=== PATIENT | male | born 1955 | race American Indian/Alaskan Native ===

== ENCOUNTER 2019-04-13 11:53 | Emergency (ER) | payer MEDICAID ==
[2019-04-13 12:34] LABS: Basophils % (Auto) 0.9 % (0.0-1.8); Eosinophils # (Auto) 0.1 K/mm3 (0.0-0.4); Eosinophils % (Auto) 2.7 % (0.0-4.3); Hematocrit 32.8 % (35.5-45.6); Hemoglobin 11.1 gm/dl (11.8-15.2); Lymphocytes # (Auto) 1.1 K/mm3 (1.2-5.4); Lymphocytes % (Auto) 30.9 % (13.4-35.0); Mean Corpuscular HGB Conc 34 % (32-34); Mean Corpuscular Volume 83 fl (84-94); Monocytes # (Auto) 0.3 K/mm3 (0.0-0.8); Monocytes % (Auto) 7.7 % (0.0-7.3); Platelet Count 201 K/mm3 (140-440); Red Blood Count 3.95 M/mm3 (3.65-5.03); Red Cell Distribution Width 12.9 % (13.2-15.2)
[2019-04-13 12:50] LABS: INR 1.2 (0.87-1.13)
[2019-04-13 12:51] LABS: Partial Thromboplastin Time 34.3 Sec. (24.2-36.6); Thrombin Time 17.7 Sec. (15.1-19.6)
[2019-04-13 12:53] LABS: Alanine Aminotransferase 25 units/L (7-56); Albumin 3.4 g/dL (3.9-5); BUN/Creatinine Ratio 16; Blood Urea Nitrogen 13 mg/dL (9-20); Calcium 9.4 mg/dL (8.4-10.2); Hemolysis Index 6
[2019-04-13 12:54] LABS: Alanine Aminotransferase 25 units/L (7-56); Albumin 3.4 g/dL (3.9-5)
[2019-04-13 13:01] LABS: Bilirubin,Direct < 0.2 mg/dL (0-0.2)
--- NOTE | 2019-04-13 13:35 | Emergency Department Report ---
HPI - General Chief Complaint: Neuro Symptoms/Deficit Time Seen by Provider: 04/13/19 12:48 - HPI HPI: Room 19 The patient is a 64-year-old male presenting with chief complaint of altered mental status. The patient's girlfriend states that the patient has had altered mental status for the past 2 days. She states she felt the patient slumped over on his left side today. The patient does not remember this. The patient states he remembers eating breakfast this morning the girlfriend states the patient was slumped over on his left side and drooling. ED Past Medical Hx - Past Medical History Previous Medical History?: Yes Hx Hypertension: Yes Hx CVA: Yes (x 5) Additional medical history: hep c - Surgical History Past Surgical History?: Yes - Family History Family history: no significant - Social History Smoking Status: Current Every Day Smoker (less than 5 cigarettes daily) Substance Use Type: None ED Review of Systems ROS: Stated complaint: AMS/POSS CVA Other details as noted in HPI Comment: Unobtainable due to pts medical conditions Physical Exam - Physical Exam Vital Signs: Vital Signs 04/13/19 12:09 Temperature 98.9 F Pulse Rate 79 Respiratory 16 Rate Blood Pressure 117/72 [Left] O2 Sat by Pulse 96 Oximetry Physical Exam: GENERAL: The patient is well-developed well-nourished male lying on stretcher not appearing to be in acute distress. [] HEENT: Normocephalic. Atraumatic. Extraocular motions are intact. Patient has moist mucous membranes. NECK: Supple. Trachea midline CHEST/LUNGS: Clear to auscultation. There is no respiratory distress noted. HEART/CARDIOVASCULAR: Regular. There is no tachycardia. There is no gallop rub or murmur. ABDOMEN: Abdomen is soft, nontender. Patient has normal bowel sounds. There is no abdominal distention. SKIN: There is no rash. There is no edema. There is no diaphoresis. NEURO: The patient is awake, alert, and oriented. The patient is cooperative. 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 Cranial nerves II through XII grossly intact. The patient has normal speech MUSCULOSKELETAL: There is no evidence of acute injury. ED Course Vital Signs 04/13/19 12:09 Temperature 98.9 F Pulse Rate 79 Respiratory 16 Rate Blood Pressure 117/72 [Left] O2 Sat by Pulse 96 Oximetry ED Medical Decision Making - Lab Data Result diagrams: 04/13/19 12:20 04/13/19 12:20 Laboratory Tests 04/13/19 04/13/19 04/13/19 12:20 12:20 12:20 WBC 3.4 L RBC 3.95 Hgb 11.1 L Hct 32.8 L MCV 83 L MCH 28 MCHC 34 RDW 12.9 L Plt Count 201 Lymph % (Auto) 30.9 Fleming % (Auto) 7.7 H Eos % (Auto) 2.7 Baso % (Auto) 0.9 Lymph # 1.1 L Fleming # 0.3 Eos # 0.1 Baso # 0.0 Seg Neutrophils % 57.8 Seg Neutrophils # 2.0 PT 14.9 INR 1.20 H APTT 34.3 Thrombin Time 17.7 Sodium 134 L Potassium 4.1 Chloride 100.5 Carbon Dioxide 22 Anion Gap 16 BUN 13 Creatinine 0.8 Estimated GFR > 60 BUN/Creatinine Ratio 16 Glucose 256 H Calcium 9.4 Total Bilirubin 0.30 Direct Bilirubin Indirect Bilirubin AST 26 ALT 25 Alkaline Phosphatase 61 Ammonia Total Creatine Kinase 360 H CK-MB (CK-2) 7.0 H CK-MB (CK-2) Rel Index 1.9 Troponin T < 0.010 Total Protein 6.1 L Albumin 3.4 L Albumin/Globulin Ratio 1.3 04/13/19 04/13/19 12:20 12:20 WBC RBC Hgb Hct MCV MCH MCHC RDW Plt Count Lymph % (Auto) Fleming % (Auto) Eos % (Auto) Baso % (Auto) Lymph # Fleming # Eos # Baso # Seg Neutrophils % Seg Neutrophils # PT INR APTT Thrombin Time Sodium Potassium Chloride Carbon Dioxide Anion Gap BUN Creatinine Estimated GFR BUN/Creatinine Ratio Glucose Calcium Total Bilirubin 0.30 Direct Bilirubin < 0.2 Indirect Bilirubin 0.1 AST 28 ALT 25 Alkaline Phosphatase 62 Ammonia 36.0 Total Creatine Kinase CK-MB (CK-2) CK-MB (CK-2) Rel Index Troponin T Total Protein 6.3 Albumin 3.4 L Albumin/Globulin Ratio 1.2 - EKG Data -: EKG Interpreted by Mo EKG shows normal: sinus rhythm Rate: normal - EKG Data When compared to previous EKG there are: previous EKG unavailable Interpretation: nonspecific ST-T wave alejandra (T-wave inversion in leads 2, 3, aVF, V6) - Radiology Data Radiology results: report reviewed (CT head), image reviewed (CT head) [facility] [address] [place] [id number] Cat Scan Report Signed Patient: JENNIFER VÁZQUEZ MR#: [id number] 53 : 1955 Acct:[id number] Age/Sex: 64 / M ADM Date: 04/13/19 Loc: ED Attending Dr: Ordering Physician: LI ACEVEDO MD Date of Service: 04/13/19 Procedure(s): CT head/brain wo con Accession Number(s): [id number] cc: LI ACEVEDO MD CT HEAD WITHOUT CONTRAST INDICATION / CLINICAL INFORMATION: altered mental status. TECHNIQUE: All CT scans at this location are performed using CT dose reduction for ALARA by means of automated exposure control. COMPARISON: None available. A patient with last name Shahram in the same birthday is present in the [facility] PACS system. The first name of that patient is listed as Rajat rather than Jean Marie. The patient's have a similar appearing medial wall blowout fracture on the right. FINDINGS: HEMORRHAGE: No evidence of intracranial hemorrhage or extra-axial fluid collection. EXTRA-AXIAL SPACES: Cortical sulci, sylvian fissures and basilar cisterns have an unremarkable appearance. VENTRICULAR SYSTEM: The ventricular system is of normal size and configuration. CEREBRAL PARENCHYMA: Periventricular and deep white matter areas of decreased attenuation are noted consistent with microvascular ischemic change. In addition more focal areas of decreased attenuation are observed in the horner radiata of the right frontal lobe in the centrum semiovale of both frontal lobes. A focal low-attenuation lesion is present in the anterior limb of the left internal capsule. These may represent superimposed infarctions which are age indeterminate. If recent infarction remains a clinical concern then follow-up examination with MRI brain to include diffusion-weighted scans be considered. CEREBELLUM / BRAINSTEM: Brainstem and cerebellum have an unremarkable appearance. INTRACRANIAL VESSELS: Calcified atherosclerotic plaque is seen along the course of the cavernous segments of both internal carotid arteries. ORBITS: Patient is status post bilateral cataract surgery. There is evidence of a remote medial wall blowout fracture on the right with deformity of the right lamina papyracea. No additional orbital abnormalities are identified. SOFT TISSUES of HEAD: No significant abnormality. CALVARIUM: Evaluation of bone windows reveals no abnormalities. PARANASAL SINUSES / MASTOID AIR CELLS: Paranasal sinuses are free from inflammatory mucosal disease. Mastoid air cells are normally pneumatized. IMPRESSION: 1. Advanced microvascular ischemic changes. Superimposed areas of small deep infarction cannot be entirely excluded as described above. If recent infarction remains a clinical concern then follow-up with magnetic resonance imaging to include diffusion-weighted sequences is suggested. Signer Name: Usama Santana MD Signed: 04/13/2019 1:44 PM Workstation Name: [id number] Transcribed By: Dictated By: Usama Santana MD Electronically Authenticated By: Usama Santana MD Signed Date/Time: 04/13/19 1344 DD/ 1338 TD/TT: - Differential Diagnosis TIA, dysrhythmia, syncope, altered mental status Critical care attestation.: If time is entered above; I have spent that time in minutes in the direct care of this critically ill patient, excluding procedure time. ED Disposition Clinical Impression: Transient neurologic deficit Disposition: OP ADMIT IP TO THIS HOSP Is pt being admited?: Yes Does the pt Need Aspirin: Yes Condition: Fair Time of Disposition: 13:58 (hospitalist paged (Dr Diaz))
--- NOTE | 2019-04-13 13:48 | Cat Scan Report ---
CT HEAD WITHOUT CONTRAST INDICATION / CLINICAL INFORMATION: altered mental status. TECHNIQUE: All CT scans at this location are performed using CT dose reduction for ALARA by means of automated e xposure control. COMPARISON: None available. A patient with last name Shahram in the same birthday is present in the [facility] PACS system. The first name of that patient is listed as Rajat rather than Alfie ling. The patient's have a similar appearing medial wall blowout fracture on the right. FINDINGS: HEMORRHAGE: No evidence of intracranial hemorrhage or extra-axial fluid collection. EXTRA-AXIAL SPACES: Cortical sulci, sylvian fissures and basilar cisterns have an unremarkable appear ance. VENTRICULAR SYSTEM: The ventricular system is of normal size and configuration. CEREBRAL PARENCHYMA: Periventricular and deep white matter areas of decreased attenuation are noted c onsistent with microvascular ischemic change. In addition more focal areas of decreased attenuation a re observed in the horner radiata of the right frontal lobe in the centrum semiovale of both frontal lobes. A focal low-attenuation lesion is present in the anterior limb of the left internal capsule. T hese may represent superimposed infarctions which are age indeterminate. If recent infarction remains a clinical concern then follow-up examination with MRI brain to include diffusion-weighted scans be considered. CEREBELLUM / BRAINSTEM: Brainstem and cerebellum have an unremarkable appearance. INTRACRANIAL VESSELS: Calcified atherosclerotic plaque is seen along the course of the cavernous segm ents of both internal carotid arteries. ORBITS: Patient is status post bilateral cataract surgery. There is evidence of a remote medial wall blowout fracture on the right with deformity of the right lamina papyracea. No additional orbital abn ormalities are identified. SOFT TISSUES of HEAD: No significant abnormality. CALVARIUM: Evaluation of bone windows reveals no abnormalities. PARANASAL SINUSES / MASTOID AIR CELLS: Paranasal sinuses are free from inflammatory mucosal disease. Mastoid air cells are normally pneumatized. IMPRESSION: 1. Advanced microvascular ischemic changes. Superimposed areas of small deep infarction cannot be ent irely excluded as described above. If recent infarction remains a clinical concern then follow-up wit h magnetic resonance imaging to include diffusion-weighted sequences is suggested. Signer Name: Usama Santana MD Signed: 04/13/2019 1:44 PM Workstation Name: [id number]
[2019-04-13 14:40] LABS: Amphetamine Screen,Urine PRESUMPTIVE NEGATIVE; Benzodiazepines Screen,Urine PRESUMPTIVE NEGATIVE; Cocaine Screen,Urine PRESUMPTIVE NEGATIVE; Methadone Screen,Urine PRESUMPTIVE NEGATIVE; Opiate Screen,Urine PRESUMPTIVE NEGATIVE
[2019-04-13 14:43] LABS: Bacteria,Urine 1+ /HPF (Negative); Bilirubin,Urine NEG (Negative); Blood,Urine MOD (Negative); Color,Urine Yellow (Yellow); Mucus,Urine FEW /HPF; Protein,Urine <15 mg/dL mg/dL (Negative); Urobilinogen,Urine < 2.0 mg/dL (<2.0)
[2019-04-13 14:48] LABS: RBC,Urine < 1.0 /HPF (0.0-6.0)
[2019-04-13 15:09] VITALS: BP 156/79
[2019-04-13 16:02] LABS: Cannabinoid Screen,Urine PRESUMPTIVE POSITIVE
[2019-04-13] MEDS ORDERED: levoFLOXacin 750 MG TAB PO ONE (16:35)
== END 2019-04-13 16:00 | disposition admitted as inpatient to this hospital (09) ==
LOC: ED 11:53
DX: R29.818 Other symptoms and signs involving the nervous system (principal); I10 Essential (primary) hypertension; F17.210 Nicotine dependence, cigarettes, uncomplicated
CPT/HCPCS: 36415; 70450; 80053; 80076; 80307; 81001; 82140; 82550; 82553; 84484; 85025; 85610; 85670; 85730; 93005; 93010